=== PATIENT | female | born 1940 | race African-American/Black ===

== ENCOUNTER → 2017-05-22 | Outpatient (CLI) | payer MEDICARE, BC ==
--- NOTE | 2017-05-23 16:27 | WOMENS IMAGING REPORT ---
EXAM DESCRIPTION: 3D SCREENING MAMMO BILAT COMPLETED DATE/TIME: 05/22/2017 11:15 am REASON FOR STUDY: SCREENING MAMMO Z12.31 ENCNTR SCREEN MAMMOGRAM FOR MALIGNANT NEOPLASM OF SILVIA COMPARISON: 2010 to 2015 TECHNIQUE: Standard craniocaudal and mediolateral oblique views of each breast recorded using digita l acquisition and breast tomosynthesis. LIMITATIONS: None. FINDINGS: No masses, calcifications or architectural distortion. No areas of suspicion. Read with the assistance of CAD. .[facility] - R2 Cenova Version 1.3 .[facility] - R2 Cenova Version 1.3 .[facility] - R2 Cenova Version 2.4 .[facility] [place] Cenova Version 2.4 .[facility] - R2 Dipper Machine Operator Version 9.2 IMPRESSION: NORMAL MAMMOGRAM. BIRADS 1. BREAST DENSITY: b. There are scattered areas of fibroglandular density. BIRAD: 1 NEGATIVE RECOMMENDATION: ROUTINE SCREENING COMMENT: The patient has been notified of the results by letter per SA requirements. Additional no tification policies are in place for contacting patient with suspicious or incomplete findings. Quality ID #[id number]: The [employer] recommends an annual screening mammogram for women aged 40 years or over. This facility utilizes a reminder system to ensure that all patients receive reminder letters, and/or direct phone calls for appointments. This includes reminders for routine scr eening mammograms, diagnostic mammograms, or other Breast Imaging Interventions when appropriate. Th is patient will be placed in the appropriate reminder system. The [employer] (ACR) has developed recommendations for screening MRI of the breast s in certain patient populations, to be used in conjunction with mammography. Breast MRI surveillanc e may be appropriate for women with more than 20% lifetime risk of developing breast cancer as deter mined by genetic testing, significant family history of the disease, or history of mantle radiation f or Hodgkins Disease. ACR Practice Guidelines 2008. DBT Technology DBT is a type of tomographic mammography. With conventional mammography, overlapping breast tissue ma y make lesions difficult to detect, even with good compression. DBT uses an x-ray tube that rotates a round the breast, taking images at different angles. These images are then combined to create thin sl ices of the breast that the radiologist can view as a 3D reconstruction. The [employer] unit can perform full-field digital mammograms (2D imaging); or DBT (3D imaging); or both, in a combination mode that quickly performs both the mammogram and the tomosynthesis scan while the breast is still compressed. PQRS 6045F: Fluoroscopic imaging is not utilized for breast tomosynthesis. TECHNICAL DOCUMENTATION: FINDING NUMBER: (1) ASSESSMENT: (1) JOB ID: [id number] [employer]- All Rights Reserved
== END ==
LOC: WI 10:42
PROVIDERS: ATTEND Internal Medicine Geriatric Medicine
DX: Z12.31 Encounter for screening mammogram for malignant neoplasm of breast (principal)
CPT/HCPCS: 77063; G0202; 77067

== ENCOUNTER 2018-12-25 19:33 | Emergency (ER) | payer MEDICARE, OTHER ==
--- NOTE | 2018-12-25 22:11 | ER Document Report ---
ED Medical Screen (RME) - General Chief Complaint: Abdominal Pain Stated Complaint: ABDOMINAL PAIN Time Seen by Provider: 12/25/18 22:10 Primary Care Provider: FALGUNI BRUCE MD [Primary Care Provider] - Follow up as needed Mode of Arrival: Wheelchair Information source: Patient Notes: Patient presents complaining of increased pain from umbilical hernia. Patient states that area has gradually become more swollen but her pain increased this afternoon. Patient states she did have vomiting x1 episode today. Patient denies any urinary symptoms. Patient states area was initially very firm but does seem to be somewhat softer now. I have greeted and performed a rapid initial assessment of this patient. A comprehensive ED assessment and evaluation of the patient, analysis of test results and completion of the medical decision making process will be conducted by additional ED providers. TRAVEL OUTSIDE OF THE [place] IN LAST 30 DAYS: No - Related Data Allergies/Adverse Reactions: No Known Allergies Allergy (Verified 12/25/18 19:39) Physical Exam - Vital signs Vitals: Temp Pulse Resp BP Pulse Ox 97.7 F 82 14 170/79 H 97 12/25/18 19:33 12/25/18 19:33 12/25/18 19:33 12/25/18 19:33 12/25/18 19:33 - Abdominal Inspection: Other - Umbilical hernia Tenderness: Tender - Umbilical hernia Course - Vital Signs Vital signs: Temp Pulse Resp BP Pulse Ox 97.7 F 82 14 170/79 H 97 12/25/18 19:33 12/25/18 19:33 12/25/18 19:33 12/25/18 19:33 12/25/18 19:33 Doctor's Discharge - Discharge Referrals: FALGUNI BRUCE MD [Primary Care Provider] - Follow up as needed
[2018-12-25] MEDS ORDERED: ONDANSETRON 4 MG TAB.RAPDIS PO ONE (23:56)
[2018-12-26 00:32] LABS: ABSOLUTE LYMPHOCYTES (AUTO) 1.4 10^3/uL (0.5-4.7); ABSOLUTE MONOCYTES (AUTO) 0.7 10^3/uL (0.1-1.4); ABSOLUTE NEUT (AUTO) 9.3 10^3/uL (1.7-8.2); BASOPHILS % (AUTO) 0.2 % (0-2); HEMATOCRIT 39.5 % (36.0-47.0); HEMOGLOBIN 12.4 g/dL (12.0-15.5); LYMPHOCYTES % (AUTO) 12.4 % (13-45); MEAN CORPUSCULAR HEMOGLOBIN 26.8 pg (27.0-33.4); MEAN CORPUSCULAR HGB CONC 31.4 g/dL (32.0-36.0); MEAN CORPUSCULAR VOLUME 86 fl (80-97); MONOCYTES % (AUTO) 6.2 % (3-13); PLATELET COUNT 283 10^3/uL (150-450); RED BLOOD COUNT 4.62 10^6/uL (3.72-5.28); RED CELL DISTRIBUTION WIDTH 12.9 % (11.5-14.0); SEGMENTED NEUTROPHILS % (AUTO) 81.2 % (42-78); TOTAL CELLS COUNTED % (AUTO) 100 %; WHITE BLOOD COUNT 11.5 10^3/uL (4.0-10.5)
[2018-12-26 00:36] LABS: APPEARANCE,URINE CLEAR; BILIRUBIN,URINE NEGATIVE (NEGATIVE); COLOR,URINE YELLOW; GLUCOSE, URINE NEGATIVE (NEGATIVE); KETONES,URINE NEGATIVE (NEGATIVE); LEUKOCYTE ESTERASE,URINE NEGATIVE (NEGATIVE); NITRITE,URINE NEGATIVE (NEGATIVE); PROTEIN,URINE NEGATIVE (NEGATIVE); URINE SPECIFIC GRAVITY 1.015; UROBILINOGEN,URINE NEGATIVE mg/dL (<2.0)
[2018-12-26 00:44] LABS: ALANINE AMINOTRANSFERASE 20 U/L (9-52); ALBUMIN 4.4 g/dL (3.5-5.0); ALKALINE PHOSPHATASE 61 U/L (38-126); ANION GAP 11 (5-19); ASPARTATE AMINO TRANSFERASE 19 U/L (14-36); BILIRUBIN,DIRECT 0.2 mg/dL (0.0-0.4); BILIRUBIN,TOTAL 0.4 mg/dL (0.2-1.3); BLOOD UREA NITROGEN 25 mg/dL (7-20); CALCIUM 10.6 mg/dL (8.4-10.2); CARBON DIOXIDE 20 mmol/L (22-30); CHLORIDE 110 mmol/L (98-107); GLUCOSE 141 mg/dL (75-110); POTASSIUM 4.9 mmol/L (3.6-5.0); SODIUM 141.1 mmol/L (137-145); TOTAL PROTEIN 7.7 g/dL (6.3-8.2)
[2018-12-26] MEDS ORDERED: NORMAL SALINE 500 ML IV ONE (01:10)
--- NOTE | 2018-12-26 01:22 | ER Document Report ---
ED General - General Chief Complaint: Abdominal Pain Stated Complaint: ABDOMINAL PAIN Time Seen by Provider: 12/25/18 22:10 Primary Care Provider: FALGUNI BRUCE MD [Primary Care Provider] - Follow up as needed Mode of Arrival: Wheelchair TRAVEL OUTSIDE OF THE [place] IN LAST 30 DAYS: No - HPI Notes: Patient is a 78-year-old female who presents to the emergency department for evaluation of abdominal pain. She has a history of an umbilical hernia. She states that the pain started this afternoon, and at that time her hernia felt larger and firmer. She describes the pain as a sharp and stabbing pain, at a 9 out of 10 at its worse. She states that since then her pain is improved. She currently rates it only 2 out of 10. She states that now feels soft and back to normal. - Related Data Allergies/Adverse Reactions: No Known Allergies Allergy (Verified 12/25/18 19:39) Past Medical History - General Information source: Patient - Social History Smoking Status: Never Smoker Drug Abuse: None Family History: Reviewed & Not Pertinent - Past Medical History Cardiac Medical History: Reports: Hx Hypercholesterolemia, Hx Hypertension Endocrine Medical History: Reports: Hx Diabetes Mellitus Type 2 Review of Systems - Review of Systems Constitutional: No symptoms reported EENT: No symptoms reported Cardiovascular: No symptoms reported Respiratory: No symptoms reported Gastrointestinal: See HPI Genitourinary: No symptoms reported Female Genitourinary: No symptoms reported Musculoskeletal: No symptoms reported Skin: No symptoms reported Neurological/Psychological: No symptoms reported Physical Exam - Vital signs Vitals: Temp Pulse Resp BP Pulse Ox 97.7 F 82 14 170/79 H 97 12/25/18 19:33 12/25/18 19:33 12/25/18 19:33 12/25/18 19:33 12/25/18 19:33 - Notes Notes: Vital signs reviewed, please refer to chart. Head is normocephalic, atraumatic. Pupils equal round, reactive to light. Neck is supple without meningismus. Heart is regular rate and rhythm. Lungs are clear to auscultation bilaterally. Abdomen is soft, moderate sized umbilical hernia noted. Is soft, reduces easily. Normoactive bowel sounds throughout. Extremities without cyanosis, clubbing. Posterior calves are nontender. Peripheral pulses are equal. Skin is warm and dry. Patient is awake, alert, neurological exam is nonfocal. Course - Re-evaluation Re-evalutation: 12/26/18 01:21 Patient presents emergency department for evaluation. She had laboratory investigations and medications initially ordered through triage. Laboratory investigations revealed a mildly decreased bicarb, mildly elevated white count. Patient, however, feel significantly improved. She is having bowel movements. She certainly not obstructed. Her hernia site is soft. She was given IV fluids. I did recommend referral on to surgery. I will give her the name of our on-call surgeon, or she can follow-up with her primary care physician for surgery referral. She is amenable to this plan. She develops worsening or new concerning symptoms of any sort, she is to return immediately to the emergency department for reevaluation. - Vital Signs Vital signs: Temp Pulse Resp BP Pulse Ox 97.7 F 82 14 170/79 H 97 12/25/18 19:33 12/25/18 19:33 12/25/18 19:33 12/25/18 19:33 12/25/18 19:33 - Laboratory Result Diagrams: 12/26/18 00:13 12/26/18 00:13 Laboratory results interpreted by me: 12/26/18 12/26/18 12/26/18 00:13 00:13 00:13 WBC 11.5 H MCH 26.8 L MCHC 31.4 L Seg Neutrophils % 81.2 H Lymphocytes % 12.4 L Absolute Neutrophils 9.3 H Chloride 110 H Carbon Dioxide 20 L BUN 25 H Est GFR (Non-Af Amer) 51 L Glucose 141 H Lactic Acid Calcium 10.6 H Urine Ascorbic Acid 40 H 12/26/18 00:13 WBC MCH MCHC Seg Neutrophils % Lymphocytes % Absolute Neutrophils Chloride Carbon Dioxide BUN Est GFR (Non-Af Amer) Glucose Lactic Acid 2.5 H Calcium Urine Ascorbic Acid Discharge - Discharge Clinical Impression: Umbilical hernia without obstruction or gangrene, Dehydration Condition: Stable Disposition: HOME, SELF-CARE Instructions: Abdominal Pain ([facility]), Umbilical Hernia ([facility]) Additional Instructions: Rest. Follow-up with your primary care physician this week. You can discuss surgical referral with him, or follow-up with our on-call surgeon, listed below. Return to the emergency department with worsening or new concerning symptoms of any sort. Referrals: FALGUNI BRUCE MD [Primary Care Provider] - Follow up as needed
[2018-12-26 02:20] VITALS: BP 139/85
== END 2018-12-26 02:20 | disposition home or self-care (01) ==
LOC: ER 19:33
DX: K42.9 Umbilical hernia without obstruction or gangrene (principal); E86.0 Dehydration; E11.9 Type 2 diabetes mellitus without complications; I10 Essential (primary) hypertension
CPT/HCPCS: 99284; 96360; 36415; 83605; 85025; 80053; 81001; J7040

== ENCOUNTER 2019-02-25 06:48 | Inpatient (IN) | payer MEDICARE, OTHER ==
[2019-02-22 10:39] LABS: HEMATOCRIT 32.9 % (36.0-47.0); HEMOGLOBIN 10.7 g/dL (12.0-15.5); MEAN CORPUSCULAR HGB CONC 32.6 g/dL (32.0-36.0); MEAN CORPUSCULAR VOLUME 83 fl (80-97); PLATELET COUNT 314 10^3/uL (150-450); RED BLOOD COUNT 3.98 10^6/uL (3.72-5.28); RED CELL DISTRIBUTION WIDTH 13.7 % (11.5-14.0); WHITE BLOOD COUNT 6.1 10^3/uL (4.0-10.5)
[2019-02-22 10:58] LABS: ANION GAP 10 (5-19); BLOOD UREA NITROGEN 22 mg/dL (7-20); CALCIUM 10.3 mg/dL (8.4-10.2); CARBON DIOXIDE 21 mmol/L (22-30); CHLORIDE 110 mmol/L (98-107); GLUCOSE 81 mg/dL (75-110); POTASSIUM 4.6 mmol/L (3.6-5.0)
--- NOTE | 2019-02-22 13:34 | EKG REPORT ---
SEVERITY:- BORDERLINE ECG - SINUS RHYTHM BORDERLINE INFERIOR Q WAVES : Confirmed by: Diogo Correia MD 22-Feb-2019 13:33:24
[~2019-02-25 06:48] MED LIST: ACETAMINOPHEN 325 MG TABLET PO PRN; CEFAZOLIN SODIUM 2 GM in DEXTROSE 5%-WATER 100 ML IV PRN; LIDOCAINE 0.5% INJ-PF (5 MG/ML) 50 ML SDV SUBCUT PRN
[2019-02-25] MEDS ORDERED: FENTANYL CITRATE INJ/PF 100 MCG/2 ML AMPUL ONE ×2 (09:16→10:58)
[2019-02-25] MEDS ORDERED: MIDAZOLAM 2 MG/2 ML INJ ONE (09:17)
[2019-02-25] MEDS ORDERED: PROPOFOL INJ 200 MG/20 ML VIAL IV ONE (09:17)
[2019-02-25] MEDS ORDERED: HYDROMORPHONE HCL INJ/PF 2 MG/ML AMPULE ONE (09:17)
[2019-02-25] MEDS ORDERED: BUPIVACAINE HCL 0.25% /EPINEPHRINE INJ/PF 30 ML SDV ONE (09:20)
[2019-02-25] MEDS ORDERED: FENTANYL CITRATE INJ/PF 100 MCG/2 ML AMPUL IV PRN ×3 (10:24)
[2019-02-25] MEDS ORDERED: MEPERIDINE HCL/PF INJ 25 MG/1 ML DISP.SYRIN IV PRN (10:24)
[2019-02-25] MEDS ORDERED: DIPHENHYDRAMINE HCL 50 MG/ML VIAL IV PRN (10:24)
[2019-02-25] MEDS ORDERED: PROMETHAZINE HCL INJ 25 MG/1 ML VIAL IV PRN ×2 (10:24)
[2019-02-25] MEDS ORDERED: BUPIVACAINE HCL 0.25% /EPINEPHRINE INJ/PF 30 ML SDV INJ ONE (10:38)
[2019-02-25] MEDS ORDERED: ACETAMINOPHEN 1,000 MG/100 ML RTUPB IV ONE (11:00)
--- NOTE | 2019-02-25 12:08 | Operative Report ---
Nonrecallable Operative Report DATE OF SURGERY: 02/25/19 PREOPERATIVE DIAGNOSIS: incarcerated ventral hernia POSTOPERATIVE DIAGNOSIS: incarcerated ventral hernia OPERATION: ventral hernia repair SURGEON: ALFONSO GARCIA SUPERVISOR LOCOMOTIVE: ANDRÉS BROWN ANESTHESIA: GA TISSUE REMOVED OR ALTERED: incarcerated omentum COMPLICATIONS: none ESTIMATED BLOOD LOSS: 25cc INTRAOPERATIVE FINDINGS: see note PROCEDURE: Patient was brought to the operating room and awake alert stable condition placed the operative table supine position induced under general anesthesia intubated the abdomen was prepped and draped in usual sterile fashion for the procedure. After appropriate timeout and site verification a longitudinal incision was made from just above this large umbilical hernia in the midabdomen circumferentially around it in elliptical fashion to the inferior umbilical region. We then began with the Bovie cautery circumferentially came around the subcutaneous tissue in the incision to come to completely free up this large mass of skin and incarcerated umbilical hernia. Using the Bovie cautery we continue to carry decision circumferential on the umbilical defect and quickly realized that the umbilical defect was relatively small about 2 to 3 cm with a large amount of incarcerated omentum and cystic peritoneal fluid within the sac upon reaching the stock of the umbilicus we came across it slowly with Bovie cautery making sure we did not injure any small bowel as we came across it became through some omentum which was controlled with alternating Dubon clamps and 0 Vicryl ties once we completely divided the incarcerated omental Stalk we were able to remove the umbilical skin the cystic mass and the incarcerated omentum. We controlled the edges of the omentum and the Dubno clamps with 0 Vicryl ties allowed to drop back into the abdominal cavity clear the undersurface of the fascia which was only about a 3 cm defect. Once we cleared underneath the fascia we closed the defect with interrupted placed #2 Vicryl sutures placed in a Smead Tellez fashion. Once is completed we reapproximated the subcutaneous tissue with interrupted placed 3-0 Vicryl sutures and skin was closed with yong and reinforced with intermittent placed 2-0 nylon sutures. A sterile dressing was applied at the termination of the procedure estimated blood loss was 25 cc sponge needle counts were correct x2 Andrés ZAZUETA was present for the entire procedure for help with wound retraction wound closure
[2019-02-25] MEDS ORDERED: LIDOCAINE 2% INJ-PF (100 MG/5 ML) SYRINGE ONE (12:21)
[2019-02-25] MEDS: MORPHINE SULFATE 10 MG/ML INJ IV PRN ×3 (12:47→21:54)
[2019-02-25] MEDS: LACTATED RINGERS 1000 ML IV PRN ×2 (12:47→20:37)
[2019-02-25] MEDS ORDERED: GLYCOPYRROLATE 1 MG/5 ML VIAL ONE ×2 (13:40→20:36)
[2019-02-25] MEDS ORDERED: LIDOCAINE 2% INJ-PF (20 MG/ML) 2 ML AMPUL ONE ×2 (13:40→20:36)
[2019-02-25] MEDS ORDERED: PHENYLEPHRINE HCL INJ/PF 10 MG/1 ML SDV ONE ×2 (13:40→20:36)
[2019-02-25] MEDS ORDERED: ROCURONIUM BROMIDE INJ 50 MG/5 ML VIAL IV ONE ×2 (13:40→20:36)
[2019-02-25] MEDS ORDERED: ONDANSETRON HCL INJ/PF 4 MG/2 ML SDV ONE ×2 (13:40→20:36)
[2019-02-25] MEDS ORDERED: NEOSTIGMINE METHYLSULFATE 10 MG/10 ML VIAL ONE ×2 (13:40→20:36)
[2019-02-25] MEDS: OXYCODONE-ACETAMINOPHEN 5-325 MG TABLET PO PRN ×2 (14:45→19:42)
[2019-02-25] MEDS ORDERED: DEXAMETHASONE SOD PHOSPHATE INJ 4 MG/1 ML VIAL ONE (20:36)
[2019-02-25] MEDS: FAMOTIDINE INJ/PF 20 MG/2 ML SDV IV SCH (21:54)
[2019-02-26] MEDS: MORPHINE SULFATE 10 MG/ML INJ IV PRN ×3 (02:31→17:24)
--- NOTE | 2019-02-26 07:57 | PDOC PROGRESS REPORT ---
Subjective Progress Note for:: 02/26/19 Reason For Visit: INCARCERATED VENTRAL HERNIA Physical Exam Vital Signs: Temp Pulse Resp BP Pulse Ox 97.9 F 82 22 H 139/78 H 96 02/25/19 23:55 02/25/19 23:55 02/25/19 23:55 02/25/19 23:55 02/25/19 23:55 Intake & Output 02/25/19 02/26/19 02/27/19 06:59 06:59 06:59 Intake Total 3319 Output Total 10 Balance 3309 Weight 79.4 kg General appearance: PRESENT: no acute distress Head exam: PRESENT: normocephalic Eye exam: PRESENT: EOMI Ear exam: PRESENT: normal external ear exam Mouth exam: PRESENT: moist Teeth exam: PRESENT: edentulous Neck exam: PRESENT: full ROM Respiratory exam: PRESENT: clear to auscultation yousuf Cardiovascular exam: PRESENT: RRR Pulses: PRESENT: normal radial pulses, normal femoral pulses Vascular exam: PRESENT: normal capillary refill GI/Abdominal exam: PRESENT: soft, tenderness - wound clean, dry. Rectal exam: PRESENT: deferred Extremities exam: PRESENT: full ROM Musculoskeletal exam: PRESENT: full ROM Neurological exam: PRESENT: alert, awake, oriented to person, oriented to place Psychiatric exam: PRESENT: appropriate affect Skin exam: PRESENT: dry Results Laboratory Results: 02/22/19 09:43 02/25/19 08:50 02/25/19 08:50 Potassium 4.7 Assessment & Plan - Plan Summary Plan Summary: s/p repair of ventral hernia doing well this am chris clears will slowely advance to reg diet later today poss home in am.
[2019-02-26] MEDS: FAMOTIDINE INJ/PF 20 MG/2 ML SDV IV SCH ×2 (09:58→21:08)
[2019-02-26 12:06] LABS: HEMATOCRIT 32.5 % (36.0-47.0); HEMOGLOBIN 10.5 g/dL (12.0-15.5); MEAN CORPUSCULAR HEMOGLOBIN 26.6 pg (27.0-33.4); MEAN CORPUSCULAR HGB CONC 32.4 g/dL (32.0-36.0); MEAN CORPUSCULAR VOLUME 82 fl (80-97); PLATELET COUNT 293 10^3/uL (150-450); RED BLOOD COUNT 3.95 10^6/uL (3.72-5.28); RED CELL DISTRIBUTION WIDTH 13.9 % (11.5-14.0); WHITE BLOOD COUNT 10.2 10^3/uL (4.0-10.5)
[2019-02-27] MEDS ORDERED: BISACODYL 10 MG SUPP.RECT PR ONE (06:42)
--- NOTE | 2019-02-27 06:48 | Discharge Summary ---
General - Admit/Disc Date/PCP Admission Date/Primary Care Provider: 02/25/19 10:50 FALGUNI Morales is a 79-year-old female who was admitted for an elective ventral hernia repair Discharge Date: 02/27/19 - Discharge Diagnosis Final Diagnosis: Ventral hernia - Additional Information Discharge Diet: As Tolerated Discharge Activity: Activity As Tolerated, No Lifting Over 10 Pounds Home Medications: Sitagliptin Phos/Metformin HCl [Janumet 50-500 mg Tablet] 1 each PO BID 02/18/19 Acetaminophen [Tylenol] 325 mg PO ASDIR PRN 02/22/19 Ascorbic Acid [Vitamin C] 100 mg PO DAILY 02/22/19 Azilsartan Med/Chlorthalidone [Edarbyclor 40-12.5 mg Tablet] 1 each PO DAILY 02/22/19 Cholecalciferol (Vitamin D3) [Vitamin D3 1000 unit Chewable Tablet] 1,000 unit PO DAILY 02/22/19 Colesevelam HCl 3.75 gm PO DAILY 02/22/19 Icosapent Ethyl [Vascepa] 1 gm PO BID 02/22/19 Tramadol HCl [Ultram 50 mg Tablet] 50 mg PO TID 02/22/19 History of Present Illness Patient complains of: No complaints History of Present Illness: GUILHERME FRAGOSO is a 79 year old female who was admitted on for an elective ventral hernia repair. General with the procedure on the day of admission tolerated well postoperatively she is had a routine benign postop course started on a clear liquid diet the day of surgery and was slowly advanced to a soft diet has been up ambulating she is been tolerating her soft diet she has minimal complaints of abdominal pain on postop day 2 she is ready for discharge home The patient has not complained of any any significant pain and does have tramadol at home and therefore she will not be given any pain medicine occasion upon discharge She was given a follow-up appointment to see me in 7 to 10 days for suture removal. She is instructed to leave the wound open to the air do no heavy lifting of anything greater than 5 to 10 pounds for the next 4 to 6 weeks Final diagnosis ventral hernia. Physical Exam Vital Signs: Temp Pulse Resp BP Pulse Ox 98.0 F 96 24 H 147/79 H 97 02/27/19 03:01 02/27/19 03:01 02/27/19 03:01 02/27/19 03:01 02/27/19 03:01 Intake & Output 02/25/19 02/26/19 02/27/19 06:59 06:59 06:59 Intake Total 3319 480 Output Total 10 Balance 3309 480 Weight 79.4 kg 77.5 kg General appearance: PRESENT: no acute distress Head exam: PRESENT: normocephalic Eye exam: PRESENT: EOMI Ear exam: PRESENT: normal external ear exam Mouth exam: PRESENT: moist Neck exam: PRESENT: full ROM Respiratory exam: PRESENT: clear to auscultation yousuf Cardiovascular exam: PRESENT: RRR Pulses: PRESENT: normal radial pulses, normal femoral pulses GI/Abdominal exam: PRESENT: soft, other - Wound is clean and dry Rectal exam: PRESENT: deferred Extremities exam: PRESENT: full ROM Musculoskeletal exam: PRESENT: full ROM Neurological exam: PRESENT: alert, awake, oriented to person, oriented to place Psychiatric exam: PRESENT: appropriate affect Skin exam: PRESENT: dry Results Laboratory Results: 02/26/19 11:33 02/26/19 11:33 02/26/19 02/26/19 11:33 11:33 WBC 10.2 RBC 3.95 Hgb 10.5 L Hct 32.5 L MCV 82 MCH 26.6 L MCHC 32.4 RDW 13.9 Plt Count 293 Creatinine 0.78 Est GFR ( Amer) > 60 Plan Discharge Plan: Plan is for discharge home today follow-up with me in 7 to 10 days after discharge Time Spent: Less than 30 Minutes
[2019-02-27 08:06] VITALS: BP 151/76
[2019-02-27] MEDS: FAMOTIDINE INJ/PF 20 MG/2 ML SDV IV SCH (09:34)
== END 2019-02-27 14:19 | disposition home or self-care (01) | DRG 355 ==
LOC: OROUT 06:48 → 3W 10:50
PROVIDERS: ADMIT Surgery; ATTEND Surgery
PROC: 0WQF0ZZ Repair Abdominal Wall, Open Approach (ICD-10-PCS; principal; 2019-02-25 09:00)
DX: K43.6 Other and unspecified ventral hernia with obstruction, without gangrene (principal); E11.9 Type 2 diabetes mellitus without complications; I10 Essential (primary) hypertension; E78.00 Pure hypercholesterolemia, unspecified; Z79.84 Long term (current) use of oral hypoglycemic drugs; Z96.651 Presence of right artificial knee joint; Z88.6 Allergy status to analgesic agent; Z79.899 Other long term (current) drug therapy; E66.9 Obesity, unspecified; Z90.710 Acquired absence of both cervix and uterus
CPT/HCPCS: 36415; 752; 80048; 82565; 82962; 84132; 85027; 88305; 93005; 93010; 94799; J0131; J0690; J1100; J1170; J2001; J2250; J2270; J2370; J2405; J2704; J2710; J3010; J3490; J7060; J7120; S0028

== ENCOUNTER → 2019-03-31 | Outpatient (CLI) | payer MEDICARE, OTHER ==
--- NOTE | 2019-03-31 10:13 | RADIOLOGY REPORT (SQ) ---
EXAM DESCRIPTION: KUB/ABDOMEN (SINGLE VIEW) COMPLETED DATE/TIME: 03/31/2019 10:05 am REASON FOR STUDY: (R11.2)NAUSEA WITH VOMITING, UNSPECIFIED;(R10.9)UNSPECIFIED ABDOMINAL PAIN R11.2 NAUSEA WITH VOMITING, UNSPECIFIED R10.9 UNSPECIFIED ABDOMINAL PAIN COMPARISON: None. NUMBER OF VIEWS: One view. TECHNIQUE: Supine radiographic image of the abdomen acquired. LIMITATIONS: None. FINDINGS: BOWEL GAS PATTERN: Normal bowel gas pattern. No dilated loops. CALCIFICATIONS: There calcifications along the right and left ileo psoas muscles. This could represe nt phleboliths. Ureteral stones are thought to be less likely but not excluded. SOFT TISSUES: No gross mass or suggestion of organomegaly. HARDWARE: None in the abdomen. BONES: No acute fracture. No worrisome bone lesions. OTHER: No other significant finding. IMPRESSION: Nonspecific gas pattern. Numerous calcifications most likely representing phleboliths. Ureteral stone on the right would be hard to exclude. TECHNICAL DOCUMENTATION: JOB ID: [id number] [employer]- All Rights Reserved Reading location - IP/workstation name: [email or web address]
== END ==
LOC: RAD 09:43
PROVIDERS: ATTEND Surgery
DX: R10.9 Unspecified abdominal pain (principal); R11.2 Nausea with vomiting, unspecified
CPT/HCPCS: 74018

== ENCOUNTER 2019-05-10 08:02 | Day surgery (SDC) | payer MEDICARE, OTHER ==
[~2019-05-10 08:02] MED LIST changes: -ACETAMINOPHEN 325 MG TABLET PO PRN; -CEFAZOLIN SODIUM 2 GM in DEXTROSE 5%-WATER 100 ML IV PRN; +CHONDR SU A NA/HYALUR INTRAOC KIT (SURGICARE) ONE; +EPINEPHRINE INJ/PF 1 MG/1 ML AMPULE ONE; +FENTANYL CITRATE INJ/PF 100 MCG/2 ML AMPUL ONE; +KETOROLAC TROMETHAMINE 0.45% 4 DROP/0.4 ML DROPERETTE OD PRN; -LIDOCAINE 0.5% INJ-PF (5 MG/ML) 50 ML SDV SUBCUT PRN; +LIDOCAINE 1%/PHENYLEPHRINE 1.5% 1 ML VIAL ONE; +MIDAZOLAM 2 MG/2 ML INJ ONE; +ONDANSETRON HCL INJ/PF 4 MG/2 ML SDV ONE
[2019-05-10] MEDS: TETRACAINE HCL 0.5% OPH SOLN 4 ML OD PRN ×3 (08:30→09:03)
[2019-05-10] MEDS: TROPICAMIDE 1% OPH SOLN 15 ML OD PRN ×3 (08:30→08:50)
[2019-05-10] MEDS: BESIFLOXACIN HCL 0.6% OPH SUSP 5 ML BOTTLE OD PRN ×4 (08:30→09:21)
[2019-05-10] MEDS: CYCLOPENTOLATE 0.2%/PHENYLEPHRINE 1% OPH SOLN 2 ML OD PRN ×3 (08:30→08:50)
[2019-05-10] MEDS: DORZOLAMIDE HCL 2%/TIMOLOL MALEAT 0.5% OPH SOLN 10 ML OD PRN ×2 (09:21)
--- NOTE | 2019-05-10 11:51 | Operative Report ---
Operative Report-[facility] Operative Report: DATE OF SURGERY: 05/10/2019 PREOPERATIVE DIAGNOSIS: Cataract, right eye POSTOPERATIVE DIAGNOSIS: Cataract, right eye OPERATION: Cataract extraction with insertion of an IOL of the right eye. Intraocular Lens Model: [23.0 sn60wf] For surgery was difficulty with increased glare from headlights at night SURGEON: Florin Ott MD ANESTHESIA: Topical PROCEDURE: After obtaining appropriate consent, the patient's right eye was prepped and draped in a sterile fashion as well as the surgeon in the sterile manner and cataract surgery was started. First a paracentesis blade was used to make a side-port incision. Viscoelastic was used to inflate the anterior chamber. Next a 2.4 mm incision was made with a 2.4 mm blade, clear corneal temporarily. A continuous capsulorrhexis was made using a cystotome and Utrata forceps. Following this hydrodissection was carried out to make the kristian fully loose and mobile and it was rotated. Following this, a divide and conquer technique was used to phacoemulsify the kristian. The remaining cortex was removed with an irrigation/aspiration. Provisc was instilled into the capsular bag to inflate the bag. The intraocular lens was placed. The remaining viscoelastic material was removed with irrigation/aspiration. Following this, the incision was found to be watertight. Besivance and Cosopt was instilled into the eye and a protective shield was placed over the eye. The patient was reurned to the postoperative recovery in a stable condition.
== END 2019-05-10 09:55 | disposition home or self-care (01) ==
LOC: SC 08:02
PROVIDERS: ATTEND Internal Medicine
DX: H25.13 Age-related nuclear cataract, bilateral (principal); I10 Essential (primary) hypertension; E11.9 Type 2 diabetes mellitus without complications; Z79.84 Long term (current) use of oral hypoglycemic drugs
CPT/HCPCS: 66984; 82962; V2632; J2250; J3490 ×2; A9270; J0171; J2405; J2370; 142; J3010

== ENCOUNTER 2019-05-27 06:32 | Day surgery (SDC) | payer MEDICARE, OTHER ==
[~2019-05-27 06:32] MED LIST changes: -CHONDR SU A NA/HYALUR INTRAOC KIT (SURGICARE) ONE; +CYCLOPENTOLATE 0.2%/PHENYLEPHRINE 1% OPH SOLN 2 ML OS PRN; -EPINEPHRINE INJ/PF 1 MG/1 ML AMPULE ONE; -FENTANYL CITRATE INJ/PF 100 MCG/2 ML AMPUL ONE; -KETOROLAC TROMETHAMINE 0.45% 4 DROP/0.4 ML DROPERETTE OD PRN; +KETOROLAC TROMETHAMINE 0.45% 4 DROP/0.4 ML DROPERETTE OS PRN; -LIDOCAINE 1%/PHENYLEPHRINE 1.5% 1 ML VIAL ONE; -MIDAZOLAM 2 MG/2 ML INJ ONE; -ONDANSETRON HCL INJ/PF 4 MG/2 ML SDV ONE; +TETRACAINE HCL 0.5% OPH SOLN 4 ML ONE; +TETRACAINE HCL 0.5% OPH SOLN 4 ML OS PRN; +TROPICAMIDE 1% OPH SOLN 15 ML OS PRN
[2019-05-27] MEDS ORDERED: MIDAZOLAM 2 MG/2 ML INJ ONE (07:02)
[2019-05-27] MEDS ORDERED: FENTANYL CITRATE INJ/PF 100 MCG/2 ML AMPUL ONE (07:02)
[2019-05-27] MEDS: CHONDR SU A NA/HYALUR INTRAOC KIT (SURGICARE) ONE ×2 (07:36)
[2019-05-27] MEDS: LIDOCAINE 1%/PHENYLEPHRINE 1.5% 1 ML VIAL ONE ×2 (07:36)
[2019-05-27] MEDS: EPINEPHRINE INJ/PF 1 MG/1 ML AMPULE ONE ×2 (07:36)
[2019-05-27] MEDS: DORZOLAMIDE HCL 2%/TIMOLOL MALEAT 0.5% OPH SOLN 10 ML OS PRN ×2 (07:48)
[2019-05-27] MEDS: BESIFLOXACIN HCL 0.6% OPH SUSP 5 ML BOTTLE OS PRN ×2 (07:48)
--- NOTE | 2019-05-27 13:12 | Operative Report ---
Operative Report-[facility] Operative Report: DATE OF SURGERY: 05/27/2019 PREOPERATIVE DIAGNOSIS: Cataracts, left eye POSTOPERATIVE DIAGNOSIS: Cataract, left eye OPERATION: Cataract extraction with insertion of an IOL of the left eye. Intraocular Lens Model: [22.0 sn60wf] Reason for surgery was difficulty seeing small print SURGEON: Florin Ott MD ANESTHESIA: Topical PROCEDURE: After obtaining appropriate consent, the patient's left eye was prepped and draped in a sterile fashion as well as the surgeon in the sterile manner and cataract surgery was started. First a paracentesis blade was used to make a side-port incision. Viscoelastic was used to inflate the anterior chamber. Next a 2.4 mm incision was made with a 2.4 mm blade, clear corneal temporarily. A continuous capsulorrhexis was made using a cystotome and Utrata forceps. Following this hydrodissection was carried out to make the lens fully loose and mobile and it was rotated 90 degrees. Following this, a divide and conquer technique was used to phacoemulsify the lens. The remaining cortex was removed with an irrigation/aspiration. Provisc was instilled into the capsular bag to inflate the bag.The intraocular lens was placed. The remaining viscoelastic material was removed with irrigation/aspiration. Following this, the incision was found to be watertight. Besivance and Cosopt was instilled into the eye and a protective shield was placed over the eye. The patient was returned to the postoperative recovery in a stable condition.
== END 2019-05-27 08:42 | disposition home or self-care (01) ==
LOC: SC 06:32
PROVIDERS: ATTEND Internal Medicine
DX: H25.12 Age-related nuclear cataract, left eye (principal); Z96.1 Presence of intraocular lens; I10 Essential (primary) hypertension; E11.9 Type 2 diabetes mellitus without complications; Z79.84 Long term (current) use of oral hypoglycemic drugs; Z79.82 Long term (current) use of aspirin
CPT/HCPCS: 66984; 82962; 00142; V2632; J2250; J3490 ×2; J0171; J3010; J2370; 142

== ENCOUNTER 2020-03-18 11:48 | Emergency (ER) | payer MEDICARE, OTHER ==
--- NOTE | 2020-03-18 12:09 | ER Document Report ---
ED Medical Screen (RME) - General Stated Complaint: BLOOD PRESSURE PROBLEMS Time Seen by Provider: 03/18/20 12:06 Primary Care Provider: FALGUNI BRUCE MD [Primary Care Provider] - Follow up as needed Notes: HPI: 80-year-old female with history of hypertension presenting for slight lightheadedness today with hypertension. States she did take her blood pressure medications at home this morning takes 2 different medications. States that her sister yesterday and she does not know if that is contributing to her high blood pressure. Denies chest pain shortness of breath PHYSICAL EXAMINATION: Lung sounds are clear to auscultation regular rate and rhythm. Patient answering all questions appropriately, gait is normal. I have greeted and performed a rapid initial assessment of this patient. A comprehensive ED assessment and evaluation of the patient, analysis of test results and completion of medical decision making process will be conducted by an additional ED providers. TRAVEL OUTSIDE OF THE [place] IN LAST 30 DAYS: No - Related Data Allergies/Adverse Reactions: aspirin Allergy (Verified 03/18/20 12:05) Nausea Past Medical History - Past Medical History Cardiac Medical History: Reports: Hx Hypercholesterolemia, Hx Hypertension Denies: Hx Coronary Artery Disease, Hx Heart Attack Pulmonary Medical History: Denies: Hx Asthma, Hx Bronchitis, Hx COPD, Hx Pneumonia Neurological Medical History: Denies: Hx Cerebrovascular Accident, Hx Seizures Endocrine Medical History: Reports: Hx Diabetes Mellitus Type 2 Renal/ Medical History: Denies: Hx Peritoneal Dialysis GI Medical History: Denies: Hx Hepatitis, Hx Hiatal Hernia, Hx Ulcer Musculoskeltal Medical History: Denies Hx Arthritis Psychiatric Medical History: Denies: Hx Depression Infectious Medical History: Denies: Hx Hepatitis Past Surgical History: Reports: Hx Hysterectomy. Denies: Hx Mastectomy, Hx Open Heart Surgery, Hx Pacemaker - Immunizations Hx Diphtheria, Pertussis, Tetanus Vaccination: No Physical Exam - Vital signs Vitals: Temp Pulse Resp BP Pulse Ox 98.3 F 112 H 16 180/117 H 97 03/18/20 11:53 03/18/20 11:53 03/18/20 11:53 03/18/20 11:53 03/18/20 11:53 Course - Vital Signs Vital signs: Temp Pulse Resp BP Pulse Ox 98.3 F 112 H 16 180/117 H 97 03/18/20 11:53 03/18/20 11:53 03/18/20 11:53 03/18/20 11:53 03/18/20 11:53 Doctor's Discharge - Discharge Referrals: FALGUNI BRUCE MD [Primary Care Provider] - Follow up as needed
[2020-03-18 12:59] LABS: ABSOLUTE LYMPHOCYTES (AUTO) 2.2 10^3/uL (0.5-4.7); ABSOLUTE MONOCYTES (AUTO) 0.6 10^3/uL (0.1-1.4); BASOPHILS % (AUTO) 0.5 % (0-2); EOSINOPHILS % (AUTO) 0.2 % (0-6); HEMOGLOBIN 12.6 g/dL (12.0-15.5); LYMPHOCYTES % (AUTO) 37.2 % (13-45); MEAN CORPUSCULAR HEMOGLOBIN 27.4 pg (27.0-33.4); MEAN CORPUSCULAR HGB CONC 32.3 g/dL (32.0-36.0); MEAN CORPUSCULAR VOLUME 85 fl (80-97); MONOCYTES % (AUTO) 9.8 % (3-13); PLATELET COUNT 247 10^3/uL (150-450); RED CELL DISTRIBUTION WIDTH 13.8 % (11.5-14.0); SEGMENTED NEUTROPHILS % (AUTO) 52.3 % (42-78); TOTAL CELLS COUNTED % (AUTO) 100 %; WHITE BLOOD COUNT 5.8 10^3/uL (4.0-10.5)
--- NOTE | 2020-03-18 13:10 | RADIOLOGY REPORT (SQ) ---
EXAM DESCRIPTION: CHEST SINGLE VIEW IMAGES COMPLETED DATE/TIME: 03/18/2020 12:50 pm REASON FOR STUDY: chest pain COMPARISON: 03/21/2008 TECHNIQUE: Single frontal radiographic view of the chest acquired. NUMBER OF VIEWS: One view. LIMITATIONS: None. FINDINGS: LUNGS AND PLEURA: No pneumothorax. No consolidation or pleural effusion. MEDIASTINUM AND HILAR STRUCTURES: Stable. HEART AND VASCULAR STRUCTURES: Stable. BONES: No acute findings. HARDWARE: None in the chest. OTHER: No other significant finding. IMPRESSION: NO ACUTE FINDINGS. TECHNICAL DOCUMENTATION: JOB ID: [id number] [employer]- All Rights Reserved Reading location - IP/workstation name: [email or web address]
[2020-03-18 13:21] LABS: ALBUMIN 4.4 g/dL (3.5-5.0); ALKALINE PHOSPHATASE 67 U/L (38-126); ANION GAP 9 (5-19); ASPARTATE AMINO TRANSFERASE 18 U/L (14-36); BILIRUBIN,DIRECT 0.2 mg/dL (0.0-0.4); BILIRUBIN,TOTAL 0.4 mg/dL (0.2-1.3); BLOOD UREA NITROGEN 23 mg/dL (7-20); CALCIUM 10.1 mg/dL (8.4-10.2); CARBON DIOXIDE 23 mmol/L (22-30); CHLORIDE 107 mmol/L (98-107); GLUCOSE 117 mg/dL (75-110); POTASSIUM 4.7 mmol/L (3.6-5.0); TOTAL PROTEIN 7.6 g/dL (6.3-8.2)
--- NOTE | 2020-03-18 14:21 | ER Document Report ---
ED General - General Chief Complaint: Blood Pressure Problem Stated Complaint: BLOOD PRESSURE PROBLEMS Time Seen by Provider: 03/18/20 12:06 Primary Care Provider: FALGUNI BRUCE MD [Primary Care Provider] - Follow up as needed Mode of Arrival: Ambulatory Information source: Patient Notes: This 80-year-old woman presents to the emergency department with a history of elevated blood pressure and a complaint of stressed because of the recent of her older sister. She has been on blood pressure medications for some time. Medications were changed by her doctor, Dr. Garcia in approximately 6 months ago. States that she had been doing well until she got the news of her sisters . She denies chest pain, shortness of breath, neurologic symptoms. TRAVEL OUTSIDE OF THE [place] IN LAST 30 DAYS: No - Related Data Allergies/Adverse Reactions: aspirin Allergy (Verified 03/18/20 12:05) Nausea Past Medical History - Social History Smoking Status: Never Smoker Family History: Reviewed & Not Pertinent - Past Medical History Cardiac Medical History: Reports: Hx Hypercholesterolemia, Hx Hypertension Denies: Hx Coronary Artery Disease, Hx Heart Attack Pulmonary Medical History: Denies: Hx Asthma, Hx Bronchitis, Hx COPD, Hx Pneumonia Neurological Medical History: Denies: Hx Cerebrovascular Accident, Hx Seizures Endocrine Medical History: Reports: Hx Diabetes Mellitus Type 2 Renal/ Medical History: Denies: Hx Peritoneal Dialysis GI Medical History: Denies: Hx Hepatitis, Hx Hiatal Hernia, Hx Ulcer Musculoskeletal Medical History: Denies Hx Arthritis Psychiatric Medical History: Denies: Hx Depression Infectious Medical History: Denies: Hx Hepatitis Past Surgical History: Reports: Hx Hysterectomy. Denies: Hx Mastectomy, Hx Open Heart Surgery, Hx Pacemaker - Immunizations Hx Diphtheria, Pertussis, Tetanus Vaccination: No Hx Pneumococcal Vaccination: 06/09/17 Review of Systems - Review of Systems Notes: Constitutional: Negative for fever. HENT: Negative for sore throat. Eyes: Negative for visual changes. Cardiovascular: Negative for chest pain. Respiratory: Negative for shortness of breath. Gastrointestinal: Negative for abdominal pain, vomiting or diarrhea. Genitourinary: Negative for dysuria. Musculoskeletal: Negative for back pain. Skin: Negative for rash. Neurological: +anxiety 10 point ROS negative except as marked above and in HPI. Physical Exam - Vital signs Vitals: Temp Pulse Resp BP Pulse Ox 98.3 F 112 H 16 180/117 H 97 03/18/20 11:53 03/18/20 11:53 03/18/20 11:53 03/18/20 11:53 03/18/20 11:53 - Notes Notes: PHYSICAL EXAMINATION: Physical Exam: General: Well-nourished well-developed 80-year-old female in no acute distress HEENT: NC/AT, pupils equal round and reactive to light, MM moist,nares clear, oropharynx clear, airway patent Neck: supple, no adenopathy, no masses. Good range of motion Lungs: clear, no wheezing, no rales no rhonchi CVS: Regular rate and rhythm no murmur gallop or rub Abdomen: Soft, active, nontender, no masses, no hepatosplenomegaly Ext: No edema, clubbing or cyanosis. Neuro: Alert and responsive, moving all 4 extremities on command, cranial nerves intact, no focal findings Skin: Intact no open lesions, no rash PSYCH: Normal mood, normal affect. Course - Re-evaluation Re-evalutation: 03/18/20 15:41 This 80-year-old woman who has presented with elevated blood pressure, apparently has been responding to the recent of her older sister. States that her sister had been ill, however her demise was a quick one-week course of illness. Blood pressure was 190/110 in the emergency department. Repeat blood pressure continued to be high with triple digit diastolic value. Patient was given clonidine 0.1 mg with an improvement of the blood pressure 160/90. Patient notes that she is feeling better and is now ready to go home. - Vital Signs Vital signs: Temp Pulse Resp BP Pulse Ox 98.3 F 112 H 16 181/97 H 97 03/18/20 11:53 03/18/20 11:53 03/18/20 11:53 03/18/20 13:44 03/18/20 11:53 - Laboratory Result Diagrams: 03/18/20 12:33 03/18/20 12:33 Laboratory results interpreted by me: 03/18/20 12:33 BUN 23 H Creatinine 1.30 H Est GFR ( Amer) 48 L Est GFR (MDRD) Non-Af 40 L Glucose 117 H - Diagnostic Test Radiology reviewed: Image reviewed, Reports reviewed Radiology results interpreted by me: 03/18/20 15:51 Chest x-ray: No acute findings. No infiltrate, no effusion - EKG Interpretation by Me Rate: Normal - EKG interpreted by Dr. Raines: Normal sinus rhythm, rate 92, QT interval 320, MT interval 148, normal axis, no acute ST or T wave abnormalities, no ischemic findings, compared to EKG dated 02/22/2019 there are no acute change s. Discharge - Discharge Clinical Impression: Episode of hypertension, Grief reaction Condition: Good Disposition: HOME, SELF-CARE Instructions: Grief Reaction ([facility]) Additional Instructions: You are seen in the emergency department today with your blood pressure elevated secondary to a grief reaction. Please use the medication Lorazepam, 1 tablet twice a day as needed for stress reaction. These continue your usual blood pre ssure medications. Please follow-up with your primary care doctor as needed HOME CARE INSTRUCTIONS & INFORMATION: Thank you for choosing us for your medical needs. We hope you're satisfied with the care you received. After you leave, you must properly care for your problem and, at the same time, observe its progress. Any condition can change. Some illnesses can change rapidly over hours or days. If your condition worsens, return to the Emergency Department or see your physician promptly. ABOUT YOUR X-RAYS AND EKG'S: If you had an EKG or X-rays taken, they have been read by the Emergency Physician. The X-rays and EKG's will also be read by a Radiologist or Cannery Tender Engineer within 24 hours. If discrepancies are noted, you will be notified by telephone. Please be certain the ED has a correct telephone number & address where you can be reached. Also, realize that some fractures or abnormalities do not show up on initial X-rays. If your symptoms continue, see your physician. ABOUT YOUR LABORATORY TEST: If you had laboratory tests, the results have been reviewed by the Emergency Physician. Some test results (for example cultures) may not be available for several days. You will be contacted if any test result shows you need additional treatment. Please be certain the ED has a correct telephone number and address where you can be reached. ABOUT YOUR MEDICATIONS: You will receive instructions on how to take your medicine on the prescription label you receive. Additional information may be provided by the Pharmacy. If you have questions afterwards, call the ED for clarification or further instructions. Some prescribed medications may cause drowsiness. Do not perform tasks such as driving a car or operating machinery without consulting your Pharmacist. If you feel you need a refill of pain medication, your condition will need re-evaluation. Please do not call for a refill of any medication. ABOUT YOUR SIGNATURE: Signature of this document acknowledges to followin. Understanding that you received emergency treatment and that you may be released before al medical problems are known or treated. Please be certain the ED has a correct phone number & address where you can be reached. 2. Acknowledgement that you will arrange for follow-up care as recommended. 3. Authorization for the Emergency Physician to provide information to your follow-up Physician in order to maximize your care. AT ANY TIME, IF YOUR SYMPTOMS CHANGE SIGNIFICANTLY OR WORSEN OR YOU DEVELOP NEW SYMPTOMS, RETURN TO THE EMERGENCY DEPARTMENT IMMEDIATELY FOR RE-EVALUATION. OUR GOAL IS TO PROVIDE EXCELLENT MEDICAL CARE! WE HOPE THAT WE HAVE MET YOUR EXPECTATIONS DURING YOUR EMERGENCY DEPARTMENT VISIT AND THAT YOU FEEL YOU HAVE RECEIVED EXCELLENT CARE! Prescriptions: Lorazepam 0.5 mg PO Q8 PRN 3 Days #10 tablet PRN Reason: Anxiety Referrals: FALGUNI BRUCE MD [Primary Care Provider] - Follow up as needed
[2020-03-18] MEDS ORDERED: CLONIDINE HCL 0.1 MG TABLET PO ONE (14:56)
[2020-03-18 16:03] VITALS: BP 147/85
--- NOTE | 2020-03-18 21:56 | EKG REPORT ---
SEVERITY:- NORMAL ECG - SINUS RHYTHM [Remains] NO SIGNIFICANT CHANGE : Confirmed by: Brenda Balderrama MD 18-Mar-2020 21:55:23
== END 2020-03-18 16:26 | disposition home or self-care (01) ==
LOC: ER 11:48
DX: I10 Essential (primary) hypertension (principal); F43.22 Adjustment disorder with anxiety; Z63.4 Disappearance and death of family member; E11.9 Type 2 diabetes mellitus without complications; Z79.899 Other long term (current) drug therapy; Z88.8 Allergy status to other drugs, medicaments and biological substances
CPT/HCPCS: 93005; 99285; 36415; 85025; 80053; 84484; 71045; 93010; A9270